=== PATIENT | female | born 1985 | race Caucasian/White ===

== ENCOUNTER → 2020-01-03 | Outpatient (CLI) | payer BC, MEDICAID ==
[~2020-01-03] MED LIST: CEPH500C GT; DM H PO; ESCT10T; HYDR-3714 PO; IBP600T1 PO; IBUP-1773 PO; OXYC-12 PO; PREN1TAB19 PO; PREN1TAB64 PO
--- NOTE | 2020-01-03 17:09 | Diagnostic Imaging Report ---
INDICATION: survey, patient. TECHNIQUE: Multiple real-time grayscale images were obtained over the gravid uterus. COMPARISON: None during this . FINDINGS: A single live intrauterine fetus is seen measuring 20 weeks 4 days in size by composite measurements. Sonographic EDC is 05/18/2020. The fetus is in breech presentation. Placenta is posterior with no evidence of previa. Amniotic fluid index is normal at 14.1 cm. The cervical length was 4.9 cm. heart rate is 146 bpm. survey showed normal-appearing kidneys and bladder and stomach and intracranial ventricles. There is normal-appearing four-chamber heart view. Cord insertion and three-vessel cord are normal. spine images were normal. Maternal adnexa could not be visualized. Biometrical measurements are as follows: Biparietal 4.79 cm, age 20 weeks 4 days. Head circumference 17.77 cm, age 20 weeks 2 days. Abdominal circumference 15.57 cm, age 20 weeks 6 days. Femur length 3.31 cm, age 20 weeks 3 days. Sonographic estimate age: 20 weeks 4 days. Sonographic estimated date of delivery: 05/18/2020. Estimated Weight: 360 gm (+/- 53 gm). LMP percentile: 68%. heart rate: 146 beats per minute. number: 1 of 1. IMPRESSION: Single live intrauterine fetus measuring 20 weeks 4 days in size as described above. There was no detectable abnormality. Dictated by: Dictated on workstation # [id number]
== END ==
LOC: RAD 15:08
PROVIDERS: ATTEND Nurse Practitioner Women's Health
DX: Z34.92 Encounter for supervision of normal pregnancy, unspecified, second trimester (principal); Z3A.20 20 weeks gestation of pregnancy
CPT/HCPCS: 76805

== ENCOUNTER 2020-05-13 05:31 | Outpatient (RCR) | payer BC ==
[~2020-05-13] VITALS: Ht 172.7 cm; Wt 94.1 kg
[~2020-05-13 05:31] MED LIST changes: +PREN1TAB79 PO
[2020-05-15] MEDS ORDERED: ceFAZolin INJECTION 1,000 MG in WATER (STERILE) FOR INJECTION 10 ML IV ONE (06:15)
--- NOTE | 2020-05-15 06:15 | History & Physical-OB ---
OB - Chief Complaint & HPI Date/Time Date of Admission: Date of Admission: Date seen by a Provider: May 15, 2020 Time Seen by a Provider: 06:00 Chief Complaint/History OB-Reason for Admission/Chief: Section Hx : 5 Hx Para: 3013 Expected Date of Delivery: May 21, 2020 Gestational Age in Weeks: 39 Gestational Age in Days: 2 Indication for : desires repeat Other reason for admission: patient with history of CS x 3 presents for repeat section Admission Nurse Assessment Rev: Yes History of Labs O +/- Rub I HBsAg - Hep C - GBS - VDRL NR HIV - Covid - Allergies and Home Medications Allergies Coded Allergies: Penicillins (Verified Adverse Reaction, Mild, RASH, 09/14/11) Home Medications Vit W-Ca,Fe,FA(<1 mg) 1 Each Tablet, 1 EACH PO DAILY, (Reported) Patient Home Medication List Home Medication List Reviewed: Yes OB - History Hx of Present Ultrasounds: Normal mid trimester US Obstetrical Complications: None Medical Complications: None Information Induced Hypertension: No Maternal Gestational Diabetes: No Hemorrhage: No Obstetrical History Hx : 5 Hx Para: 3013 Hx # Term Pregnancies: 3 Hx # Pregnancies: 0 Number of Living Children: 3 Hx Termination: Yes Hx Multiple Gestation: No Hx Ectopic : No Hx Stillbirth: No Hx Complication: No Hx Induced Hypertens: No Hx Maternal Gestational Diabet: No Delivery History Hx Dystocia: Yes Hx Forceps Assisted Delivery: No Hx Vacuum Extraction Assisted: No Hx Placenta Abnormality: No Hx Distress: No Hx Large For Gestational Age I: No Hx Small for Gestational Age I: No Hx Section: Yes (x3) Hx Vaginal Delivery Post C-Sec: No Hx Blood Disorders: No (HX OF MILD ANEMIA) Patient Past Medical History NC Social History/Family History HIV/AIDS: No Recent Infectious Disease Expo: No Sexually Transmitted Disease: No Alcohol Use: Denies Use Recreational Drug Use: No Smoking Cessation: Never smoker Immunizations Hepatitis A: No Hepatitis B: No Tetanus Booster (TDap): Less than 5yrs (02/27/2020) Date of Influenza Vaccine: Feb 27, 2020 Rubella: immune RPR/VDRL: Negative GBS Status: Negative HBsAG: Negative OB - Admission Exam Physical Exam Vitals: wt 207 ht 5'8" 124/71 see RN notes for current vitals Heart: Rhythm Normal Lungs: Clear Abdomen: Gravid Extremities: Edema (1+) Reflexes: Normal OB - Assessment/Plan/Diagnosis Assessment Assessment: section Admission Dx 1. at 39 weeks 2/ History of repeat section Plan repeat . Risks of bleeding, infection, injury to bowel, bladder and ureter has been exp lained to the patient. 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 Admission Status: Inpatient Order (span 2 midnights) Reason for Inpatient Admission: section Plan Plan: Section IRIS LUJAN DO May 15, 2020 06:15
== END 2020-05-13 13:07 | disposition home or self-care (01) ==
LOC: PREOP 05:31
PROVIDERS: ATTEND Obstetrics & Gynecology
DX: Z01.818 Encounter for other preprocedural examination (principal); Z20.828 Contact with and (suspected) exposure to other viral communicable diseases
CPT/HCPCS: 87635

== ENCOUNTER 2020-05-15 01:25 | Inpatient (IN) | payer BC ==
[2020-05-15] VITALS (11 sets, daily range): BP systolic 77–124; BP diastolic 42–81
[~2020-05-15] VITALS: Ht 172.7 cm; Wt 92.7 kg
[2020-05-15] MEDS ORDERED: CITRIC ACID/SOB CIT (BICITRA) 30 ML UDC ONE (05:16)
[2020-05-15] MEDS ORDERED: WATER (STERILE) FOR INJECTION 10 ML ONE (05:16)
[2020-05-15] MEDS ORDERED: ceFAZolin INJECTION 1,000 MG ONE (05:16)
[2020-05-15] MEDS ORDERED: METOCLOPRAMIDE INJ 10 MG/2 ML (REGLAN) ONE (05:16)
[2020-05-15] MEDS ORDERED: FAMOTIDINE 20MG/2ML IV (PEPCID) ONE (05:16)
[2020-05-15] MEDS ORDERED: LACTATED RINGERS 1,000 ML IV ONE (05:17)
[2020-05-15] MEDS ORDERED: METOCLOPRAMIDE INJ 10 MG/2 ML (REGLAN) IV ONE (06:30)
[2020-05-15] MEDS ORDERED: LACTATED RINGERS 1,000 ML IV PRN ×2 (06:30)
[2020-05-15] MEDS ORDERED: CITRIC ACID/SOB CIT (BICITRA) 30 ML UDC PO ONE (06:30)
[2020-05-15] MEDS ORDERED: FAMOTIDINE 20MG/2ML IV (PEPCID) IV ONE (06:30)
--- NOTE | 2020-05-15 06:30 | NUR ---
JUAN DAVID JACOME presented to unit via ambulation from home, accompanied by , for repeat c/s. JUAN DAVID JACOME weighed, gowned, voided, and to bed. EFHM and TOCO applied, VS taken. JUAN DAVID JACOME oriented to bed controls, call light, TV, heat, and A/C controls.
[2020-05-15] MEDS ORDERED: ceFAZolin INJECTION 1,000 MG in WATER (STERILE) FOR INJECTION 10 ML IV ONE (06:45)
[2020-05-15 07:04] LABS: BASOPHILS % (AUTO) 0 % (0-10); EOSINOPHILS # (AUTO) 0.1 10^3/uL (0.0-0.3); EOSINOPHILS % (AUTO) 1 % (0-10); HEMATOCRIT 31 % (35-52); HEMOGLOBIN 10.1 g/dL (11.5-16.0); LYMPHOCYTES % (AUTO) 19 % (12-44); MEAN CORPUSCULAR HEMOGLOBIN 26 pg (25-34); MEAN CORPUSCULAR HGB CONC 32 g/dL (32-36); MEAN CORPUSCULAR VOLUME 80 fL (80-99); MEAN PLATELET VOLUME 9.5 fL (9.0-12.2); MONOCYTES # (AUTO) 0.6 10^3/uL (0.0-1.0); MONOCYTES % (AUTO) 6 % (0-12); NEUTROPHILS # (AUTO) 7.8 10^3/uL (1.8-7.8); NEUTROPHILS % (AUTO) 73 % (42-75); PLATELET COUNT 327 10^3/uL (130-400); WHITE BLOOD COUNT 10.6 10^3/uL (4.3-11.0)
[2020-05-15] MEDS ORDERED: fentaNYL INJECTION 100 MCG/2 ML AMP ONE (07:04)
[2020-05-15 07:07] LABS: BILIRUBIN,URINE NEGATIVE (NEGATIVE); CLARITY,URINE CLEAR; COLOR,URINE YELLOW; GLUCOSE, URINE (UA) NEGATIVE (NEGATIVE); KETONES,URINE 2+ (NEGATIVE); LEUKOCYTE ESTERASE ,URINE 1+ (NEGATIVE); NITRITE,URINE NEGATIVE (NEGATIVE); PROTEIN,URINE NEGATIVE (NEGATIVE)
[2020-05-15 07:37] LABS: BACTERIA,URINE LARGE /HPF
[2020-05-15] MEDS ORDERED: OXYTOCIN PRE-MIX DRIP 500 ML IV ONE ×2 (08:01→08:31)
[2020-05-15] MEDS ORDERED: ROPIVACAINE 5MG/ML 30ML VIAL ONE (08:02)
[2020-05-15] MEDS ORDERED: ONDANSETRON 4 MG/2 ML (SDV) Z0FRAN ONE (08:11)
--- NOTE | 2020-05-15 08:46 | Cesarean Section Operative ---
Procedure Procedure Note Pre-operative Diagnosis: Jina More is a 34 /Para 5/3 ,Gestational Age 39 2/7 weeks, with history of previous section Post-operative Diagnosis: same Procedure: Repeat low transverse section Physician: IRIS LUJAN Estimated blood loss: 500 mL Disposition: Findings: Viable male , Apgars 8/9, weight 8#, intact placenta, 3vc, normal appe aring uterus, tubes, and ovaries. Indications:Jina More is a 34 /Para 5 /3 ,Gestational Age 39 2/7 weeks presenting for repeat section. Procedure Details: The patient was seen in pre-op and the procedure was discussed with the patient in full, including the risks, benefits, and alternatives. All questions were answered. The patient was taken to the operating room and a time out was performed, verifying patient and procedure. After spinal anesthesia was placed by our anesthesia colleagues, the patient was placed in the dorsal supine with leftward tilt for uterine displacement.~ Her abdomen was then prepped and draped in the typical sterile fashion. A Pfannenstiel skin incision was made using a scalpel through the previous incision and carried down through the underlying fascia. The fascia was incised in the midline and tented up using Margo clamps. On both the inferior and superior fascia side the rectus muscle was dissected off bluntly and sharply u sing Pacheco scissors. The peritoneum was identified and entered bluntly in the midline. This was then stretched laterally using manual strength. After entering the abdominal cavity and confirming lack of intraperitoneal adhesions, an extra large Brent retractor was placed and the lower uterine segment was visualized. The bladder was advanced over the lower uterine segment, which was quite thin. A bladder flap was created with the use of Metzenbaum scissors.~ A scalpel was utilized to make a low transverse uterine incision. Amniotomy was performed with an Allis clamp with return of clear fluid. The 's head was grasped and brought to the level of the incision. The sliastic suction was placed on the vertex and Fundal pressure was applied and infant was delivered without difficulty. Mouth and nares were suctioned with bulb suction. After the umbilical cord was clamped and cut, the infant was handed off to the pediatric staff. A sample of cord blood was then obtained. there was a loose nuchal cord that was delivered through. The placenta was delivered intact via uterine massage. The uterus was cleared of all clots and debris. The uterine incision was closed using 0 Vicryl in a running locked fashion. A second imbricated layer was placed using 0 Vicryl in a running fashion as well. The bilateral tubes and ovaries appeared normal. The abdominal gutters were cleared of all clots and debris. A final check of the uterine incision showed it to be hemostatic. The peritoneum was closed using 3-0 Vicryl in a running fashion. The fascia was closed with 0 Vicryl in a running fashion. The subcutaneous space was hemostatic, and irrigated. The subcutaneous space was closed with 3-0 Vicryl in several single interrupted stitches. The skin was then closed using 4-0 Monocryl in a running subcuticular fashion. The skin edges were reapproximated together and were hemostatic. A pressure dressing was applied. All sponge, lap and needle counts were correct at the end of the procedure per nursing. Vitals - Labs Vital Signs - I&O Vital Signs Date Time Temp Pulse Resp B/P (MAP) Pulse Ox O2 Delivery O2 Flow Rate FiO2 05/15/20 06:37 36.5 90 18 100 Room Air Labs Laboratory Tests 05/15/20 06:30: Urine Color YELLOW, Urine Clarity CLEAR, Urine pH 6.0, Urine Specific [place] >=1.030, Urine Protein NEGATIVE, Urine Glucose (UA) NEGATIVE, Urine Ketones 2+H, Urine Nitrite NEGATIVE, Urine Bilirubin NEGATIVE, Urine Urobilinogen 0.2, Urine Leukocyte Esterase 1+H, Urine RBC (Auto) NEGATIVE, Urine RBC NONE, Urine WBC 5- 10H, Urine Squamous Epithelial Cells 10-25H, Urine Crystals NONE, Urine Bacteria LARGEH, Urine Casts NONE, Urine Mucus NEGATIVE, Urine Culture Indicated NO 05/15/20 06:40: White Blood Count 10.6, Red Blood Count 3.91, Hemoglobin 10.1L, Hematocrit 31L, Mean Corpuscular Volume 80, Mean Corpuscular Hemoglobin 26, Mean Corpuscular Hemoglobin Concent 32, Red Cell Distribution Width 14.0, Platelet Count 327, Mean Platelet Volume 9.5, Immature Granulocyte % (Auto) 1, Neutrophils (%) (Auto) 73, Lymphocytes (%) (Auto) 19, Monocytes (%) (Auto) 6, Eosinophils (%) (Auto) 1, Basophils (%) (Auto) 0, Neutrophils # (Auto) 7.8, Lymphocytes # (Auto) 2.0, Monocytes # (Auto) 0.6, Eosinophils # (Auto) 0.1, Basophils # (Auto) 0.0, Immature Granulocyte # (Auto) 0.1 IRIS LUJAN DO May 15, 2020 08:46
--- NOTE | 2020-05-15 08:49 | Discharge Inst-Women's Service ---
Discharge Inst-Women's Serv Depart Medication/Instructions New, Converted or Re-Newed RX: RX on Chart Final Diagnosis previous section antepartum and acute blood loss anemia Problems Reviewed?: Yes Consults/Follow Up Additional Follow Up: Yes (1 week for incision check; 6 week pp exam) Activity Activity: Activity as Tolerated Driving Instructions: No Driving for 1 Week NO SMOKING: NO SMOKING Nothing Inside Vagina: No Douching, No [place], No Tampons Diet Discharge Diet: No Restrictions Symptoms to Report to : Swelling Increased, Bleeding Excessive, Pain Increased, Fever Over 101 Degrees F, Vaginal Bleeding Increase, Cramps in Feet or Legs, Vaginal Discharge Foul For Any Problems or Questions: Contact Your Physician Skin/Wound Care Infection Signs and Symptoms: Increased Redness, Foul Odor of Wound, Increased Drainage, Skin Itchy or Has a Rash, Increased Swelling, Temperature Above 101 F Stitches/[place]/Dermabond: Dermabond Bathing Instructions: IRIS Her DO May 15, 2020 08:49
[2020-05-15] MEDS ORDERED: OXYTOCIN PRE-MIX DRIP 500 ML IV SCH (09:00)
[2020-05-15] MEDS ORDERED: morphine INJ 4 MG/ML 1 ML (VIAL/SYRINGE) IVP PRN (09:00)
[2020-05-15] MEDS ORDERED: TETANUS,DIPTH,PERTUSS P/F (BOOSTRIX) 0.5 ML VIAL IM SCH (09:00)
[2020-05-15] MEDS ORDERED: MEASLES,MUMPS,RUBELLA 1 EA INJ SC SCH (09:00)
[2020-05-15] MEDS ORDERED: ONDANSETRON 4 MG/2 ML (SDV) Z0FRAN IVP PRN (09:15)
[2020-05-15] MEDS ORDERED: HYDROmorphone 2 MG/ML VIAL (DILAUDID) IV ONE (09:15)
[2020-05-15] MEDS: KETOROLAC 30 MG/ML VIAL IV SCH ×3 (10:40→23:53)
[2020-05-15] MEDS: ACETAMINOPHEN 500 MG TAB (TYLENOL) PO SCH ×2 (14:44→23:53)
[2020-05-15] MEDS: CATHETER FLUSH 10 ML SYR IV SCH ×2 (20:29→23:53)
[2020-05-15] MEDS: DOCUSATE SODIUM 100 MG (COLACE) CAP PO SCH ×2 (20:48→21:28)
[2020-05-16] MEDS: IBUPROFEN 600 MG (MOTRIN) TAB PO SCH ×3 (00:33→18:04)
[2020-05-16 05:00] VITALS: BP 113/64
--- NOTE | 2020-05-16 05:16 | Postpartum Progress Note ---
Post Op Post-operative Day #1 s/p RLTCS Subjective: Patient is without complaints. Ambulating, voiding after gonsales removed. Tolerating a regular diet without nausea or vomiting. Normal lochia. Pain is well controlled with oral pain medications. Passing flatus. breast feeding. Objective: morning labs are pending Laboratory Tests Test 05/15/20 06:30 05/15/20 06:40 Range/Units Urine Color YELLOW Urine Clarity CLEAR Urine pH 6.0 5-9 Urine Specific [place] >=1.030 1.016-1.022 Urine Protein NEGATIVE NEGATIVE Urine Glucose (UA) NEGATIVE NEGATIVE Urine Ketones 2+ H NEGATIVE Urine Nitrite NEGATIVE NEGATIVE Urine Bilirubin NEGATIVE NEGATIVE Urine Urobilinogen 0.2 < = 1.0 MG/DL Urine Leukocyte Esterase 1+ H NEGATIVE Urine RBC (Auto) NEGATIVE NEGATIVE Urine RBC NONE /HPF Urine WBC 5-10 H /HPF Urine Squamous Epithelial Cells 10-25 H /HPF Urine Crystals NONE /LPF Urine Bacteria LARGE H /HPF Urine Casts NONE /LPF Urine Mucus NEGATIVE /LPF Urine Culture Indicated NO White Blood Count 10.6 4.3-11.0 10^3/uL Red Blood Count 3.91 3.80-5.11 10^6/uL Hemoglobin 10.1 L 11.5-16.0 g/dL Hematocrit 31 L 35-52 % Mean Corpuscular Volume 80 80-99 fL Mean Corpuscular Hemoglobin 26 25-34 pg Mean Corpuscular Hemoglobin Concent 32 32-36 g/dL Red Cell Distribution Width 14.0 10.0-14.5 % Platelet Count 327 130-400 10^3/uL Mean Platelet Volume 9.5 9.0-12.2 fL Immature Granulocyte % (Auto) 1 % Neutrophils (%) (Auto) 73 42-75 % Lymphocytes (%) (Auto) 19 12-44 % Monocytes (%) (Auto) 6 0-12 % Eosinophils (%) (Auto) 1 0-10 % Basophils (%) (Auto) 0 0-10 % Neutrophils # (Auto) 7.8 1.8-7.8 10^3/uL Lymphocytes # (Auto) 2.0 1.0-4.0 10^3/uL Monocytes # (Auto) 0.6 0.0-1.0 10^3/uL Eosinophils # (Auto) 0.1 0.0-0.3 10^3/uL Basophils # (Auto) 0.0 0.0-0.1 10^3/uL Immature Granulocyte # (Auto) 0.1 0.0-0.1 10^3/uL Physical Exam: General - Alert and oriented, no apparent distress Abdomen - Soft, appropriately tender to palpation, non-distended, fundus firm at umbilicus Incision - clean, dry and intact; no erythema or induration, no drainage Extremities - no edema, negative Veronika's bilaterally Assessment: 1. post-operative day # 1, status post RLTCS. Recovering well, hemodynamically stable 2. Morning labs are pending Plan: Routine post-operative care. Encourage breast feeding. Encourage ambulation. VTE prophylaxis: SCDs. Ferrous sulfate supplementation. Plan for discharge tomorrow Vitals - Labs Vital Signs - I&O Vital Signs Date Time Temp Pulse Resp B/P (MAP) Pulse Ox O2 Delivery O2 Flow Rate FiO2 05/15/20 23:53 37.1 71 18 117/55 (75) 97 Room Air 05/15/20 20:00 37.0 78 20 111/61 (78) 97 Room Air 05/15/20 16:15 37.1 67 20 124/67 (86) 97 Room Air 05/15/20 14:10 Room Air 05/15/20 11:00 36.8 75 20 107/69 (82) 97 Room Air 05/15/20 09:40 Room Air 05/15/20 09:37 36.5 18 112/77 (89) 99 Room Air 05/15/20 09:30 Room Air 05/15/20 09:25 36.4 18 102/70 (81) 100 Room Air 05/15/20 09:15 Room Air 05/15/20 09:07 36.7 18 101/64 (76) 99 Room Air 05/15/20 09:00 Room Air 05/15/20 09:00 36.4 18 97/81 (86) 98 Room Air 05/15/20 08:53 36.1 16 77/60 (66) 99 Room Air 05/15/20 08:45 Room Air 05/15/20 08:42 36.2 16 89/42 (58) 100 Room Air 05/15/20 06:37 36.5 90 18 100 Room Air I & O 05/16/20 07:00 Intake Total 2500 ml Output Total 165 ml Balance 2335 ml Labs Laboratory Tests 05/15/20 06:30: Urine Color YELLOW, Urine Clarity CLEAR, Urine pH 6.0, Urine Specific [place] >=1.030, Urine Protein NEGATIVE, Urine Glucose (UA) NEGATIVE, Urine Ketones 2+H, Urine Nitrite NEGATIVE, Urine Bilirubin NEGATIVE, Urine Urobilinogen 0.2, Urine Leukocyte Esterase 1+H, Urine RBC (Auto) NEGATIVE, Urine RBC NONE, Urine WBC 5- 10H, Urine Squamous Epithelial Cells 10-25H, Urine Crystals NONE, Urine Bacteria LARGEH, Urine Casts NONE, Urine Mucus NEGATIVE, Urine Culture Indicated NO 05/15/20 06:40: White Blood Count 10.6, Red Blood Count 3.91, Hemoglobin 10.1L, Hematocrit 31L, Mean Corpuscular Volume 80, Mean Corpuscular Hemoglobin 26, Mean Corpuscular Hemoglobin Concent 32, Red Cell Distribution Width 14.0, Platelet Count 327, Mean Platelet Volume 9.5, Immature Granulocyte % (Auto) 1, Neutrophils (%) (Auto) 73, Lymphocytes (%) (Auto) 19, Monocytes (%) (Auto) 6, Eosinophils (%) (Auto) 1, Basophils (%) (Auto) 0, Neutrophils # (Auto) 7.8, Lymphocytes # (Auto) 2.0, Monocytes # (Auto) 0.6, Eosinophils # (Auto) 0.1, Basophils # (Auto) 0.0, Immature Granulocyte # (Auto) 0.1 IRIS LUJAN DO May 16, 2020 05:16
[2020-05-16] MEDS ORDERED: DCS100C PO (05:17)
[2020-05-16] MEDS ORDERED: OXC5T PO (05:17)
[2020-05-16] MEDS ORDERED: ACET-93 PO (05:17)
[2020-05-16] MEDS ORDERED: IBUP-844 PO (05:17)
[2020-05-16] MEDS: KETOROLAC 30 MG/ML VIAL IV SCH (05:56)
[2020-05-16] MEDS: CATHETER FLUSH 10 ML SYR IV SCH (05:56)
[2020-05-16] MEDS: DOCUSATE SODIUM 100 MG (COLACE) CAP PO SCH ×2 (08:11→21:06)
[2020-05-16] MEDS: ACETAMINOPHEN 500 MG TAB (TYLENOL) PO SCH ×2 (08:12→16:16)
[2020-05-16] MEDS: FERROUS SULF 325 MG (IRON) TAB PO SCH (08:12)
[2020-05-16 08:15] VITALS: BP 106/64
[2020-05-16 10:23] LABS: BASOPHILS % (AUTO) 0 % (0-10); EOSINOPHILS # (AUTO) 0.1 10^3/uL (0.0-0.3); EOSINOPHILS % (AUTO) 1 % (0-10); HEMATOCRIT 27 % (35-52); HEMOGLOBIN 8.5 g/dL (11.5-16.0); LYMPHOCYTES # (AUTO) 1.3 10^3/uL (1.0-4.0); LYMPHOCYTES % (AUTO) 10 % (12-44); MEAN CORPUSCULAR HEMOGLOBIN 25 pg (25-34); MEAN CORPUSCULAR HGB CONC 31 g/dL (32-36); MEAN CORPUSCULAR VOLUME 80 fL (80-99); MEAN PLATELET VOLUME 9.5 fL (9.0-12.2); MONOCYTES # (AUTO) 0.8 10^3/uL (0.0-1.0); MONOCYTES % (AUTO) 6 % (0-12); NEUTROPHILS # (AUTO) 10.6 10^3/uL (1.8-7.8); NEUTROPHILS % (AUTO) 81 % (42-75); PLATELET COUNT 283 10^3/uL (130-400)
[2020-05-16 11:55] VITALS: BP 109/56
[2020-05-16 18:03] VITALS: BP 110/70
--- NOTE | 2020-05-16 21:14 | NUR ---
Nurse at pt bedside. Pt. said that previous shoulder pain has subsided after walking hallways. Pt. laying comfortable in bed holding . Pt. assessed at this time. Bleeding is minimal. No clots expressed. Incision is dry, without drainage, and open to air. Pt. states that she has little to no pain at this time. Water refilled. No further request at this time. Call light within reach.
[2020-05-17 00:12] VITALS: BP 113/58
[2020-05-17] MEDS: IBUPROFEN 600 MG (MOTRIN) TAB PO SCH ×4 (00:14→12:11)
[2020-05-17] MEDS: ACETAMINOPHEN 500 MG TAB (TYLENOL) PO SCH ×2 (00:14→08:13)
[2020-05-17 06:03] VITALS: BP 98/57
[2020-05-17] MEDS: CATHETER FLUSH 10 ML SYR IV SCH (08:10)
--- NOTE | 2020-05-17 08:15 | NUR ---
Shift assessment done.
[2020-05-17] MEDS: DOCUSATE SODIUM 100 MG (COLACE) CAP PO SCH (08:16)
[2020-05-17] MEDS: FERROUS SULF 325 MG (IRON) TAB PO SCH (08:16)
--- NOTE | 2020-05-17 08:54 | Postpartum Progress Note ---
Post Op Post-operative Day #2 s/p RLTCS Subjective: Patient is without complaints. Ambulating, voiding after gonsales removed. Tolerating a regular diet without nausea or vomiting. Normal lochia. Pain is well controlled with oral pain medications. Passing flatus. breast feeding. Objective: 05/17/20 05/17/20 00:12 06:03 Temp 36.7 36.6 Pulse 81 77 Resp 20 16 B/P (MAP) 113/58 (76) 98/57 (71) Pulse Ox 97 98 O2 Delivery Room Air Room Air 05/17/20 00:00 Intake Total 1200 ml Output Total 1000 ml Balance 200 ml Laboratory Tests Test 05/16/20 10:10 Range/Units White Blood Count 13.0 H 4.3-11.0 10^3/uL Red Blood Count 3.39 L 3.80-5.11 10^6/uL Hemoglobin 8.5 L 11.5-16.0 g/dL Hematocrit 27 L 35-52 % Mean Corpuscular Volume 80 80-99 fL Mean Corpuscular Hemoglobin 25 25-34 pg Mean Corpuscular Hemoglobin Concent 31 L 32-36 g/dL Red Cell Distribution Width 13.9 10.0-14.5 % Platelet Count 283 130-400 10^3/uL Mean Platelet Volume 9.5 9.0-12.2 fL Immature Granulocyte % (Auto) 1 % Neutrophils (%) (Auto) 81 H 42-75 % Lymphocytes (%) (Auto) 10 L 12-44 % Monocytes (%) (Auto) 6 0-12 % Eosinophils (%) (Auto) 1 0-10 % Basophils (%) (Auto) 0 0-10 % Neutrophils # (Auto) 10.6 H 1.8-7.8 10^3/uL Lymphocytes # (Auto) 1.3 1.0-4.0 10^3/uL Monocytes # (Auto) 0.8 0.0-1.0 10^3/uL Eosinophils # (Auto) 0.1 0.0-0.3 10^3/uL Basophils # (Auto) 0.0 0.0-0.1 10^3/uL Immature Granulocyte # (Auto) 0.1 0.0-0.1 10^3/uL Physical Exam: General - Alert and oriented, no apparent distress Abdomen - Soft, appropriately tender to palpation, non-distended, fundus firm at umbilicus Incision - clean, dry and intact; no erythema or induration, no drainage Extremities - no edema, negative Veronika's bilaterally Assessment: 1. post-operative day # [2, status post RLTCS. Recovering well, hemodynamically stable 2. Acute blood loss anemia Plan: Routine post-operative care. Encourage breast feeding. Encourage ambulation. VTE prophylaxis: SCDs. Ferrous sulfate supplementation. Plan for discharge today Vitals - Labs Vital Signs - I&O Vital Signs Date Time Temp Pulse Resp B/P (MAP) Pulse Ox O2 Delivery O2 Flow Rate FiO2 05/17/20 06:03 36.6 77 16 98/57 (71) 98 Room Air 05/17/20 00:12 36.7 81 20 113/58 (76) 97 Room Air 05/16/20 18:03 36.7 82 110/70 (83) Room Air 05/16/20 11:55 36.5 71 18 109/56 (73) 97 Room Air I & O 05/17/20 07:00 Intake Total 1200 ml Output Total 1000 ml Balance 200 ml Labs Laboratory Tests 05/16/20 10:10: White Blood Count 13.0H, Red Blood Count 3.39L, Hemoglobin 8.5L, Hematocrit 27L, Mean Corpuscular Volume 80, Mean Corpuscular Hemoglobin 25, Mean Corpuscular Hemoglobin Concent 31L, Red Cell Distribution Width 13.9, Platelet Count 283, Mean Platelet Volume 9.5, Immature Granulocyte % (Auto) 1, Neutrophils (%) (Auto) 81H, Lymphocytes (%) (Auto) 10L, Monocytes (%) (Auto) 6, Eosinophils (%) (Auto) 1, Basophils (%) (Auto) 0, Neutrophils # (Auto) 10.6H, Lymphocytes # (Auto) 1.3, Monocytes # (Auto) 0.8, Eosinophils # (Auto) 0.1, Basophils # (Auto) 0.0, Immature Granulocyte # (Auto) 0.1 IRIS LUJAN DO May 17, 2020 08:54
--- NOTE | 2020-05-17 08:58 | Short Stay Summary ---
Discharge Summary Hospital Course Was the Problem List Reviewed?: Yes Final Diagnosis: Prev cs, 39 week, acute blood loss anemia Hospital Course Date of Admission: May 15, 2020 at 06:14 Admission Diagnosis : Family Physician/Provider: No,Local Physician Date of Discharge: 05/17/20 Discharge Diagnosis: Previous section acute blood loss anemia Hospital Course: Uncomplicated section was accomplished on 05/15/2020. She then was admitted to women's services for post operative recovery and care. She had a routine post operative course. Day 1 hemoglobin was 8.5 and iron was started. She had post operative pain management with toradol and then ibuprofen, tylenol and oxycodone. She also had a TAP block. She was discharged to home in stable condition on post operative day 2. She is breast feeding. Labs and Pending Lab Test: Laboratory Tests 05/16/20 10:10: White Blood Count 13.0H, Red Blood Count 3.39L, Hemoglobin 8.5L, Hematocrit 27L, Mean Corpuscular Volume 80, Mean Corpuscular Hemoglobin 25, Mean Corpuscular Hemoglobin Concent 31L, Red Cell Distribution Width 13.9, Platelet Count 283, Mean Platelet Volume 9.5, Immature Granulocyte % (Auto) 1, Neutrophils (%) (Auto) 81H, Lymphocytes (%) (Auto) 10L, Monocytes (%) (Auto) 6, Eosinophils (%) (Auto) 1, Basophils (%) (Auto) 0, Neutrophils # (Auto) 10.6H, Lymphocytes # (Auto) 1.3, Monocytes # (Auto) 0.8, Eosinophils # (Auto) 0.1, Basophils # (Auto) 0.0, Immature Granulocyte # (Auto) 0.1 Home Meds Active Acetaminophen 500 Mg Tablet 1,000 Mg PO Q8HR Dok (Docusate Sodium) 100 Mg Capsule 100 Mg PO BID Oxyir Tablet (Oxycodone HCl) 5 Mg Tab 5 Mg PO Q4HR Ibu (Ibuprofen) 600 Mg Tablet 600 Mg PO Q6HR Reported Vitamins ( Vit W-Ca,Fe,FA(<1 mg)) 1 Each Tablet 1 Each PO DAILY Assessment/Pt Instructions see DC instructions Discharge Instructions Discharge Diet: No Restrictions Activity as Tolerated: Yes Discharge Physical Examination General Appearance: Alert HEENT: Atraumatic Respiratory: Clear to Auscultation, Normal Air Movement Cardiovascular: Regular Rate, Normal S1, Normal S2 Abdominal: Normal Bowel Sounds Allergies: Coded Allergies: Penicillins (Verified Adverse Reaction, Mild, RASH, 09/14/11) Discharge Summary Date of Admission May 15, 2020 at 06:14 Date of Discharge 05/17/2020 Discharge Date: May 17, 2020 Discharge Time: 09:00 Admission Diagnosis Previous section 39 week gestation Consults/Procedures Procedures Repeat low transverse section Discharge Diagnosis Previous section Acute blood loss anemia Clinical Quality Measures DVT/VTE Risk/Contraindication: Risk Factor Score Per Nursin RFS Level Per Nursing on Admit: 1=Low/No VTE PPX IRIS LUJAN DO May 17, 2020 08:58
--- NOTE | 2020-05-17 09:16 | Anesthesia-Regional Post-Op ---
Regional Patient Condition Mental Status: Alert, Oriented x3 Circulation: Same as Pre-Op Headache: Absent Sensation: Full Recovery Motor Block: Absent Post Op Complications Complications None Follow Up Care/Instructions Patient Instructions None needed. Anesthesia/Patient Condition Patient is doing well, no complaints, stable vital signs, no apparent adverse anesthesia problems. No complications reported per nursing. D/C home per [facility] Criteria: Yes BRIJESH OG CRNA May 17, 2020 09:16
--- NOTE | 2020-05-17 09:45 | NUR ---
Dr. Núñez here. Exam done in mothers room. Discharge order entered.
--- NOTE | 2020-05-17 11:00 | NUR ---
Dismissal instructions reviewed with patient. States understanding. Unable to make follow up appointments r/t weekend and holiday. Patient to call office on Tuesday to schedule incision check for 1 week, and PP check at 6 weeks. Patient has denied complaint of pain throughout day. Has ambulated well. Discussed incentive spirometry use at home.
[2020-05-17 12:00] VITALS: BP 115/77
--- NOTE | 2020-05-17 12:30 | NUR ---
Dismissed ambulatory with and out hospital exit to private car. Accompanied by OB staff. Patient appears stable.
== END 2020-05-17 12:30 | disposition home or self-care (01) | DRG 787 ==
LOC: LDRP 06:14
PROVIDERS: ADMIT Obstetrics & Gynecology; ATTEND Obstetrics & Gynecology
PROC: 10D00Z1 Extraction of Products of Conception, Low, Open Approach (ICD-10-PCS; principal; 2020-05-15 07:54)
DX: O34.211 Maternal care for low transverse scar from previous cesarean delivery (principal); D62 Acute posthemorrhagic anemia; Z3A.39 39 weeks gestation of pregnancy; Z37.0 Single live birth; O90.81 Anemia of the puerperium
CPT/HCPCS: 36415; 81000; 85025; 86850; 86900; 86901; 94664